=== PATIENT | female | born 1975 | race Caucasian/White ===

== ENCOUNTER → 2017-12-30 11:18 | Outpatient (CLI) | payer OTHER, SELFPAY ==
--- NOTE | 2017-12-30 11:21 | NM_ITS ---
CLINICAL: 42-year-old female with reported history of left kidney hydronephrosis. 99m Tc MAG3 DIURETIC RENAL SCINTIGRAPHY COMPARISON: None available FINDINGS: Following the intravenous administration of 10.8 mCi of 99m Tc MAG3, renal images reveal: 1. The flow study demonstrates normal, symmetric arterial phase distribution of the radiopharmaceutical to the bilateral kidneys. 2. Immediate static delayed nephrogram images depict prompt, homogeneous tracer concentration by the renal parenchyma of the left and right renal units. Collecting structure visualization is identified in the bilateral kidneys approximately 4 minutes following tracer injection. Washout of the radiopharmaceutical by the renal parenchyma appears qualitatively normal in both kidneys. Persistent collecting system activity is demonstrated in the bilateral renal units during 20 minutes of pre-Lasix sequential image acquisition. 3. The rcfjl-fm-[id number] ratio of total renal parenchymal function was calculated to be 52/48. Furosemide 10 mg was administered intravenously. The post Lasix T 1/2 washout of the bilateral kidney collecting system activity was calculated to be < 10 minutes, (normal < 10 minutes). NM/Renal Scan w/o Pharm Interven IMPRESSION: 1. There is preservation of bilateral renal parenchymal, cortical function. 2. The persistently defined prominent pre-Lasix left and right kidney collecting systems demonstrating normal physiologic response to induced diuresis negating the presence of significant mechanical and/or functional obstruction. Electronically Signed: Juan Sheppard DO at 13:20 EDT Tel , Service support ,
== END ==
PROVIDERS: Family Provider Family Medicine; PCP Family Medicine; Visit Provider Nurse Practitioner Adult Health
DX: N13.30 Unspecified hydronephrosis (principal)
CPT/HCPCS: 78707; A9562; J1940

== ENCOUNTER 2018-05-12 14:54 | Day surgery (SDC) | payer OTHER, SELFPAY ==
[2018-05-12 15:12] VITALS: BP 133/80; PULSE 73; RESP 18; TEMP 36.6; O2SAT 99; BMI 24.9
[2018-05-12] MEDS: Cefazolin 2 GM in 0.9% Normal Saline 100 ML IV (15:32)
--- NOTE | 2018-05-12 16:03 | PCM.DC.URO ---
Discharge Diet: Light diet - advance as tolerated Discharge Activity: Return to Normal Activity Call your doctor if your incision/area has: Continuous Slow Oozing, Sudden Increased Bleeding, Increased Pain/ Swelling, Increased Redness Call your doctor if you observe: Fever of 101 or Higher Allergies/Adverse Reactions: Allergies levofloxacin [From Levaquin] Allergy (Verified 05/05/18 08:19) Rash Penicillins [PCN] Allergy (Verified 05/05/18 08:19) SWOLLEN LEGS tetracycline Allergy (Verified 05/05/18 08:19) Rash Medications to take at Discharge Levothyroxine [Synthroid] 88 mcg PO DAILY 11/06/15 Vitamin B Complex Vit C No.3 [B Complex with Vitamin C] 1 each PO DAILY 08/31/16 Linacolotide [Linzess] 290 mcg PO DAILY 05/05/18 Primary Care Physician: Claudette Barahona PA-C [Primary Care Provider] - Test Results: Test results from this visit will be discussed in further detail at your follow-up appointment, if applicable. Please Follow Up With: Jarocho Doty MD When: please call to make an appointment.
--- NOTE | 2018-05-12 16:04 | PCM.OPRPT ---
Report of Operation Date of Procedure: 05/12/18 Pre-Operative Diagnosis: Left renal colic history of left UPJ repair Post-Operative Diagnosis: Same Surgery/Procedure Performed:: Cystoscopy and left retrograde pyelogram Description of Surgical Findings:: 42-year-old female with a history of a prior repair in the left kidney with an open pyeloplasty this was done many years ago she also had prior laser laser procedure on this kidney. She has been having off-and-on pain in the left side and she thinks that the kidney is causing her pain and discomfort CAT scan question of hydronephrosis renogram was nondiagnostic today were to do a retrograde pyelogram to get a further look at this if an area of stricture or narrowing is identified we plan to do balloon dilation of stricture dilation and placement of stent. 42-year-old female taken back to the operating room after smooth induction of anesthesia she was placed in dorsal lithotomy position the urethra and vaginal area were prepped and draped in usual sterile fashion went into the bladder with a 21 Sudanese rigid cystourethroscope urethra is normal the bladder trigone is normal the left and right ureteral orifice was normal no tumors or stones seen within the bladder nice smooth mucosa within the bladder, and cannulated the left ureteral orifice with a Pollack catheter performed a retrograde pyelogram he can see contrast going up the ureter fairly easily with no area of stricture contrast go all the way up to the kidney past the UPJ area. We then pulled out the catheter and observe the kidney and we can see good drainage and normal bolus drainage of the left kidney his images were saved on loop cine. And still images were also captured. Because a retrograde is normal no strictures were found good drainage of the kidney and the left side we did not do anything else at this point since she did not have any structures or blockage of the left kidney bladder was drained patient has anesthetic was reversed and I will demonstrate the images to her family unfortunately this may not explain her source of her left flank pain but her anatomy in the left kidney appears normal and does have normal drainage on today's retrograde pyelogram. Type of Anesthesia:: General Drains: none - Admit VTE Documentation VTE Present on Admission: No VTE Mechan Device Prophylaxis: SCD's
[2018-05-12 16:14] VITALS: BP 133/80; BP 140/114; PULSE 94; RESP 18; TEMP 36.3; O2SAT 99
[2018-05-12 16:23] VITALS: BP 123/77; BP 133/80; PULSE 74; RESP 18; O2SAT 100
[2018-05-12 16:30] VITALS: BP 123/78; BP 133/80; PULSE 76; RESP 18; O2SAT 98
[2018-05-12 16:33] VITALS: BP 124/109; BP 133/80; PULSE 72; RESP 18; TEMP 36.6; O2SAT 99
[2018-05-12 17:00] VITALS: BP 133/80
== END 2018-05-12 17:00 | disposition home or self-care (01) ==
LOC: SDC 14:54 → AC 14:57
PROVIDERS: Family Provider Family Medicine; PCP Family Medicine; Visit Provider Urology
PROC: (CPT 52332; principal; 2018-05-12 17:05)
DX: N23 Unspecified renal colic (principal); N13.4 Hydroureter; K58.1 Irritable bowel syndrome with constipation; F41.9 Anxiety disorder, unspecified; E03.9 Hypothyroidism, unspecified; Z87.442 Personal history of urinary calculi; Z98.890 Other specified postprocedural states
CPT/HCPCS: 00910; 52005; 76000; J7120; C1769; J2405

== ENCOUNTER → 2018-10-19 12:39 | Outpatient (CLI) | payer OTHER, SELFPAY ==
--- NOTE | 2018-10-19 13:00 | MRI_ITS ---
STUDY: BILATERAL BREAST MR WITHOUT AND WITH CONTRAST REASON FOR EXAM: Female, 43 years old. Dense breast tissue. TECHNIQUE: Multi-sequence multi-echo imaging of both breasts was performed with a dedicated breast coil. T1-weighted and T2-weighted images were performed before the administration of contrast. T1-weighted images were also performed after the administration of 6ml mL of Gadavist contrast intravenously without complications. COMPARISON: Screening mammograms dated April 05, 2006 and October 04, 2018 FINDINGS: RIGHT BREAST: The breast tissue is heterogeneously dense with minimal background enhancement. There are no abnormal enhancing masses or areas of non-mass enhancement in the right breast. LEFT BREAST: The breast tissue is heterogeneously dense with minimal background enhancement. There are no abnormal enhancing masses or areas of non-mass enhancement in the left breast. There are no enlarged or abnormal lymph nodes. There is no abnormality in the visualized regions of the chest or liver. MRI/Breast Bilateral W/O and W IMPRESSION: No abnormality identified on the bilateral breast MR examination with contrast. CATEGORY: BIRADS Category 1: Negative. A letter regarding these results will be sent to the patient by the facility within 30 days. Electronically Signed: Chapito Fernandez MD at 17:45 EST , Service support ,
== END ==
PROVIDERS: Family Provider Family Medicine; PCP Family Medicine; Referring Provider Obstetrics & Gynecology; Visit Provider Obstetrics & Gynecology
DX: R92.2 Inconclusive mammogram (principal)
CPT/HCPCS: 77049; A9585; C8908

== ENCOUNTER → 2020-10-13 10:09 | Outpatient (CLI) | payer SELFPAY ==
--- NOTE | 2020-10-13 10:15 | MRI_ITS ---
STUDY: BILATERAL BREAST MR WITHOUT AND WITH CONTRAST REASON FOR EXAM: Female, 45 years old. MASTODYNIA -- dense breasts, f/u mamm, area 12 o''clock left breast TECHNIQUE: Multi-sequence multi-echo imaging of both breasts was performed with a dedicated breast coil. T1-weighted and T2-weighted images were performed before the administration of contrast. T1-weighted images were also performed after the administration of IV doratem 13ml without complications. COMPARISON: US 10.02.20 FINDINGS: RIGHT BREAST: The breast tissue is scattered fibroglandular densities with minimal background enhancement. There are no abnormal enhancing masses or areas of non-mass enhancement in the right breast. LEFT BREAST: The breast tissue is scattered fibroglandular densities with minimal background enhancement. There are no abnormal enhancing masses or areas of non-mass enhancement in the left breast. There are no enlarged or abnormal lymph nodes. There is no abnormality in the visualized regions of the chest or liver. MRI/Breast Bilateral W/O and W IMPRESSION: Unremarkable breast MR examination with contrast. CATEGORY: BIRADS Category 2: Benign. A letter regarding these results will be sent to the patient by the facility within 30 days. Electronically Signed: Mil Rogers MD at 16:20 EST , Service support ,
== END ==
PROVIDERS: PCP Family Medicine; Referring Provider Obstetrics & Gynecology; Visit Provider Obstetrics & Gynecology
DX: N64.4 Mastodynia (principal)
CPT/HCPCS: 77049; A9575; A4216; C8908

== ENCOUNTER → 2020-10-24 08:49 | Outpatient (CLI) | payer OTHER, SELFPAY ==
[2020-10-16 09:48] VITALS: BMI 25.3
--- NOTE | 2020-10-24 08:51 | BI_ITS ---
MAMMOGRAPHY - UNILATERAL DIAGNOSTIC: LEFT BREAST REASON FOR EXAM: Female, 45 years old. Abnormal mammogram. PERTINENT HISTORY: Grandmother with breast cancer. TECHNIQUE: Digital unilateral breast joseph (3D mammographic acquisition) in the CC and MLO projections. 2-D mediolateral oblique (MLO) and craniocaudad (CC) views of both breasts were obtained. CAD: Full Field Digital Mammography with Computer Added Detection was performed. COMPARISON: Comparison is made with prior examination 10/04/2019. FINDINGS: Breast Composition: The breasts are heterogeneously dense, which may obscure small masses. There is a focal 9 mm x 5.4 mm nodule in the upper central portion of the left breast. Correlation with ultrasound is recommended. Tissue marker is seen in the upper lateral aspect of the left breast. No other significant abnormalities are identified. BI/DIAG MAMM W/CAD, UNILAT IMPRESSION: 9 mm x 5.4 mm nodule in the upper central portion of the left breast. Correlation with ultrasound is recommended. ASSESSMENT CATEGORY: BIRADS Category 0: Incomplete. Need additional imaging evaluation. A letter regarding these results will be sent to the patient by the facility within 30 days. Approximately 10% of breast cancers are not detected by mammography. A normal mammogram should not delay biopsy of a clinically suspicious abnormality. Electronically Signed: Elan Collins MD at 12:09 EST , Service support ,
--- NOTE | 2020-10-24 10:20 | US_ITS ---
STUDY: ULTRASOUND BREAST - LEFT REASON FOR EXAM: Female, 45 years old. Abnormal screening mammogram. TECHNIQUE: Axial and longitudinal images of the LEFT breast were performed with a high resolution ultrasound transducer. # OF IMAGES: 40 COMPARISON: Comparison is made with prior mammogram done earlier today. FINDINGS: LEFT Breast: There is a 5 mm x 4 mm x 2 mm well-defined hypoechoic nodule at the 11 o''clock position of the breast at 4 cm from the nipple. There appears to be a central echogenic density suggestive of possible lymph node. Biopsy recommended. US/Breast Limited Unilateral IMPRESSION: 5 mm x 4 mm x 2 mm ill-defined hypoechoic nodule at 11 o''clock position of the breast 4 cm nipple. Biopsy recommended. ASSESSMENT CATEGORY: BIRADS Category 4: Suspicious - Biopsy Should Be Considered. A letter regarding these results will be sent to the patient by the facility within 30 days. Electronically Signed: Elan Collins MD at 12:30 EST , Service support ,
== END ==
PROVIDERS: PCP Family Medicine; Referring Provider Surgery; Visit Provider Surgery
DX: R92.8 Other abnormal and inconclusive findings on diagnostic imaging of breast (principal)
CPT/HCPCS: 76642; 77061; 77065; G0279

== ENCOUNTER → 2020-10-30 10:47 | Outpatient (CLI) | payer OTHER, SELFPAY ==
[2020-10-16 09:48] VITALS: BMI 25.3
--- NOTE | 2020-10-30 | BRBX_PTH ---
PATIENT: ELENO GILL LOC: PIA U#:[id number] AGE/SX: 50/F ROOM: RE10/30/[address]: Dr. Hernesto Griffith MD : 1975 BED: DIS: SPEC #: [id number] RECD: 10/30/20 12:26 STATUS: GILLES ARYA #: [id number] NELSON: 10/30/20 00:[address]: Hernesto Griffith DEPT: SURGICAL PATHOLOGY RECD BY: Dave Coleman ENTERED: 10/30/20 12:26 SP TYPE: BREAST BX OTHR DR: Claudette Barahona PA-C Tissues: Left breast, NOS Procedures: Surgery Specimen Level IV HEADER OPERATION: Left stereotactic breast biopsy PRE-OP DIAGNOSIS: Focal nodule in upper central portion left breast TISSUE SUBMITTED: Left breast core biopsy ISCHEMIC TIME: 1 minute FIXATION TIME: 8.5 hours MICROSCOPIC DIAGNOSIS Left breast, stereotactic core biopsy: Fibrocystic changes and intraductal hyperplasia without atypia. Negative for malignancy. See comment. [place]:claire 10/31/2020 COMMENT Correlation with clinical, radiologic findings and appropriate follow up are necessary. MICROSCOPIC DESCRIPTION Slides are reviewed. GROSS DESCRIPTION Received in fixative is one container labeled with the patient name and designated left breast. The specimen consists of multiple elongated fragments of yee-yellow fibroadipose tissue that in aggregate measure 7.5 x 2.5 x 0.3 cm. The entire specimen is submitted in three cassettes. / [place]:claire 10/30/20 TC:5 CPT: 97274
--- NOTE | 2020-10-30 10:33 | HP.PCM_ITS ---
Problem List (1) Abnormal mammogram of left breast Status: Acute History and Physical Date of Admission: 10/30/[address] Hernesto Griffith MD on 10/27/20 at 0855 Addendum entered and electronically signed by Hernesto Griffith MD 10/27/20 08:55: October 27, 2020 At the [facility] the patient had diagnostic left mammogram with CAD. This was compared to October 04, 2019. There is felt to be a focal 9 x 5.4 mm nodule in the upper central portion of the left breast. Now the interpretation was suggested ultrasound was recommended. Despite our request it seems apparent that they did not refer her back to the very recent mammogram and ultrasound that it performed from [facility]. We did provide them with this information prior. It is of note that when I personally look at her films I see a vague area 1 year ago on mammogram similar to the area now although the area now is much more specific. The area currently has only seen on the MLO view. I cannot find it on the cc view and CAD does not find it on the cc view. I personally phoned called the patient today. I am aware that her MRI is negative. I have offered her an attempt at a stereotactic needle core upper mid left breast biopsy using the MLO view. She is aware of the technique, benefit, risk, alternatives. If we are able to sample the area then will have a definitive diagnosis. If we are not able to sample the area then would need to consider the possibility of a repeat local ultrasound or an attempt at an ultrasound-guided biopsy or full back to routine follow-up. Hernesto Griffith M.D., F.A.C.S. Intake Chief Complaint: BIRADS 3 Allergies levofloxacin [From Levaquin] Allergy (Verified 10/16/20 09:49) Rash Penicillins [PCN] Allergy (Verified 10/16/20 09:49) SWOLLEN LEGS tetracycline Allergy (Verified 10/16/20 09:49) Rash Medications Vitamin B Complex Vit C No.3 [B Complex with Vitamin C] 1 ea PO DAILY 08/31/16 [History Confirmed 10/16/20] ascorbic acid (vitamin C) 500 mg capsule 500 mg PO QDAY cap 10/16/20 [History Confirmed 10/16/20] cholecalciferol (vitamin D3) 125 mcg (5,000 unit) capsule 125 mcg PO DAILY 10/16/20 [History Confirmed 10/16/20] fluoxetine 10 mg capsule 10 mg PO DAILY cap 10/16/20 [History Confirmed 10/16/20] lansoprazole 30 mg capsule,delayed release 30 mg PO DAILY cap 10/16/20 [History Confirmed 10/16/20] levothyroxine 112 mcg tablet 112 mcg PO DAILY tab 10/16/20 [History Confirmed 10/16/20] linaclotide 290 mcg capsule 290 mcg PO DAILY cap 10/16/20 [History Confirmed 10/16/20] Assessment & Plan Problems 1. Abnormal mammogram of left breast R92.8 Plan - Dr. Hernesto Griffith MD Abnormal mammogram left breast. On the images provided it is not clear to me that the area to which they speak left breast 12 o'clock position was not seen previously in 2019. It is not clear to me that the vague item seen on ultrasound correlates with the mammogram. It is certainly reassuring that the MRI is normal. I think possibly the best thing to do would be to get a 3D left mammogram with CAD. Hopefully comparisons can be made. She concurs and we will schedule as noted. I appreciate the opportunity of assisting with surgical care Copy: Dr. Beck Finley and CARLOS Menchaca M.D., F.A.C.S. Orders Orders: DIAG MAMM W/CAD, UNILAT 10/24/20 R92.8 10/27/20 0855 <Electronically signed by Hernesto arias MD> Date _ Hernesto Griffith MD cc: CARLOS Barahona; Dr. Beck Finley MD ~* Signed Intake Vital Signs 10/16/20 Height 5 ft 3 in 10/16/20 Weight: 143 lb 10/16/20 BMI 25.3 10/16/20 BP 121/85 H 10/16/20 Blood Pressure Location Rt brachial 10/16/20 Position Sitting 10/16/20 Respiration 16 10/16/20 Pulse 74 10/16/20 Pulse Source Monitor 10/16/20 Temp 98.0 F 10/16/20 Temp Source Temporal 10/16/20 Pulse Oximetry (%) 97 10/16/20 Oxygen Delivery Method room air Intake Visit Reasons: birads 3 Chief Complaint: BIRADS 3 Potato Loader Required: No Is patient in pain?: No Allergies levofloxacin [From Levaquin] Allergy (Verified 10/16/20 09:49) Rash Penicillins [PCN] Allergy (Verified 10/16/20 09:49) SWOLLEN LEGS tetracycline Allergy (Verified 10/16/20 09:49) Rash Medications Vitamin B Complex Vit C No.3 [B Complex with Vitamin C] 1 ea PO DAILY 08/31/16 [History Confirmed 10/16/20] ascorbic acid (vitamin C) 500 mg capsule 500 mg PO QDAY cap 10/16/20 [History Confirmed 10/16/20] cholecalciferol (vitamin D3) 125 mcg (5,000 unit) capsule 125 mcg PO DAILY 10/16/20 [History Confirmed 10/16/20] fluoxetine 10 mg capsule 10 mg PO DAILY cap 10/16/20 [History Confirmed 10/16/20] lansoprazole 30 mg capsule,delayed release 30 mg PO DAILY cap 10/16/20 [History Confirmed 10/16/20] levothyroxine 112 mcg tablet 112 mcg PO DAILY tab 10/16/20 [History Confirmed 10/16/20] linaclotide 290 mcg capsule 290 mcg PO DAILY cap 10/16/20 [History Confirmed 10/16/20] PFS Medical History Hemorrhoids (Acute) Acid reflux (Acute) Constipation (Acute) Anxiety (Acute) Thyroid disease (Acute) Fatigue (Acute) Surgical History History of bunionectomy of left great toe (Acute) Hx of cholecystectomy (Acute) Hx of appendectomy (Acute) Hx of total thyroidectomy (Acute) Hx of tubal ligation (Acute) History of (Acute) History of arthroplasty of left shoulder (Acute) Hx of hysterectomy (Acute) Family History Mother Malignant hyperthermia due to anesthesia Hypertension Father Hypertension Sister Autoimmune disease Thyroid disorder Son Asthma Daughter Asthma Social History (Updated 10/16/20 @ 14:[address] Hernesto Griffith MD) Smoking Status: Never smoker second hand exposure: No alcohol intake: current alcohol intake frequency: a few times a month substance use type: does not use caffeine: Yes (1 cup daily) Type: coffee what type of physical activity do you participate in: walking frequency: daily HPI HPI HPI: ELENO GILL, is a 45 F who presents to the office today for surgical consultation regarding an abnormal left mammogram and ultrasound. The patient is referred by Dr. Beck Finley and a written copy my surgical consult and recommendations will be returned to him. 45-year-old female. G5, . Menarche was at age 14. First I was born when she was 26. She had minimal breast-feeding. No previous breast biopsies. She is not any estrogen medication. She did for her second child required fertility meds hCG and Clomid. She has no direct family members with breast cancer. Up a terminal grandmother had breast cancer. She presented for her routine screening mammograms. That was performed at [facility] with 2D imaging. There is a misprint on the interpretation and the actual finding is in the upper mid left breast a partial density seen on the mammogram. Ultrasound suggests a 5 x 4 x 5 mm item. Suggested solid but appears benign. As noted below the patient had breast MRI performed at [facility] that was unremarkable. She is referred for definitive evaluation Screening mammograms performed October 02, 2020 in [facility] suggested a possible density on the left. A breast ultrasound was done suggesting a possible 5 x 4 x 5 mm solid benign-appearing nodule 12 o'clock position poste rior depth. Dr. Beck Finley then obtained breast MRI as noted below which was felt to be normal. [facility] Imaging Services [address] [place] [address] Breast Bilateral W/O and W MR#: [id number] Name: ELENO GILL [facility] #:[id number] : [id number] From: Mil Rogers MD PCP:Claudette Barahona PA-C Status:REG CLI Study:Breast Bilateral W/O and W Date of Exam:10/13/20 Exam#[id number] Ordering Dr: Beck Finley MD STUDY: BILATERAL BREAST MR WITHOUT AND WITH CONTRAST REASON FOR EXAM: Female, 45 years old. MASTODYNIA -- dense breasts, f/u mamm, area 12 o''clock left breast TECHNIQUE: Multi-sequence multi-echo imaging of both breasts was performed with a dedicated breast coil. T1-weighted and T2-weighted images were performed before the administration of contrast. T1-weighted images were also performed after the administration of IV doratem 13ml without complications. COMPARISON: US 10.02.20 FINDINGS: RIGHT BREAST: The breast tissue is scattered fibroglandular densities with minimal background enhancement. There are no abnormal enhancing masses or areas of non-mass enhancement in the right breast. LEFT BREAST: The breast tissue is scattered fibroglandular densities with minimal background enhancement. There are no abnormal enhancing masses or areas of non-mass enhancement in the left breast. There are no enlarged or abnormal lymph nodes. There is no abnormality in the visualized regions of the chest or liver. MRI/Breast Bilateral W/O and W IMPRESSION: Unremarkable breast MR examination with contrast. CATEGORY: BIRADS Category 2: Benign. A letter regarding these results will be sent to the patient by the facility within 30 days. Electronically Signed: Mil Rogers MD at 16:20 EST , Service support , HPI HPI HPI: ELENO GILL, is a 45 F who presents to the office today for ROS General General: Yes fatigue; no weight change, appetite, colon cancer, breast cancer or weakness HEENT HEENT: No difficulty swallowing, eye injury, eye surgery, swollen glands or hoarseness Endo Endocrine: Yes thyroid disease; no diabetes mellitus, thyroid cancer, Hair loss, heat intolerance or cold intolerance Skin Skin: No rash or changing moles Breast Breast: Yes abnormal mammogram, abnormal US and breast enlargement; no left breast lump, right breast lump, nipple discharge or breast pain Musc Musculoskeletal: No back problems, arthritis, rheumatoid arthritis, gout or joint pain Cardio Cardiovascular: No murmur, pacemaker, heart disease, atrial fibrillation, high blood pressure, heart attack, heart stent, palpitations, shortness of breat with exertion or chest pain Psych Psychiatric: Yes anxiety; no depression or hearing voices Resp Respiratory: No shortness of breath, No sleep apnea, No cough, No COPD, No asthma, No emphysema, No wheezing Gastro Gastrointestinal: No abdominal pain, No nausea or vomiting, No diarrhea, Yes constipation, No blood in stool, Yes acid reflux, Yes hemorrhoids, No ulcers, No gallbladder problem, No black,tarry stools [place] Hematologic: No blood thinners, No blood disorders, No bleeding, No anemia, No blood clots Neuro Neurologic: No system reviewed and no additional complaints, except as docu, No as per HPI, No abnormal walking, No abnormal hearing, No abnormal movements, No abnormal speech, No behavioral changes, No burning sensations, No confusion, No seizure-like activity, No unsteadiness, No dizziness, No localized weakness, No frequent falls, No headache(s), No lack of coordination, No loss of vision, No memory loss, No numbness, No other visual disturbances, No radiating pain, No restless legs, No sensory deficit, No fainting, No tingling, No tremor(s), No weakness, No other Exam Chest Breast Palpation: No nipple discharge Other: With nursing present I performed ultrasound inspection of her upper mid left breast. I could see an area 12 o'clock position but it looks like it could be a conglomerate of ducts. I could not find something that absolutely metered what was seen on the [place] ultrasound. Cardio Heart Sounds: no murmurs Assessment & Plan Problems 1. Abnormal mammogram of left breast R92.8 Plan Abnormal mammogram left breast. On the images provided it is not clear to me that the area to which they speak left breast 12 o'clock position was not seen previously in 2020. It is not clear to me that the vague item seen on ultrasound correlates with the mammogram. It is certainly reassuring that the MRI is normal. I think possibly the best thing to do would be to get a 3D left mammogram with CAD. Hopefully comparisons can be made. She concurs and we will schedule as noted. I appreciate the opportunity of assisting with surgical care Copy: Dr. Beck Finley and CARLOS Menchaca M.D., F.A.C.S. Orders Orders: DIAG MAMM W/CAD, UNILAT Today R92.8 Coding Level of Care Code 79728 Diagnoses Abnormal mammogram of left breast R92.8 I have re-examined the patient. There are no clinical changes since date of exam. Procedure Criteria Procedure Type: Elective COVID Risk Discussion: The surgeon/proceduralist and patient have discussed in detail the risk of exposure to and/or potential harm posed by the COVID-19 virus with having a surgery/procedure at this time versus the risk of delaying the surgery/procedure. It is not possible to know either the risk of delaying the surgery or procedure or chance of getting an infection with perfect accuracy, but a joint decision was made between the patient and the surgeon/proceduralist to proceed at this time with the scheduled surgery/procedure as indicated on the consent form.
--- NOTE | 2020-10-30 11:40 | OP.PCM_ITS ---
Problem List (1) Abnormal mammogram of left breast Status: Acute Report of Operation Date of Procedure: 10/30/20 Pre-Operative Diagnosis: Density upper mid left breast Post-Operative Diagnosis: Same Surgery/Procedure Performed:: Stereotactic needle core biopsy upper mid left breast Description of Surgical Findings:: Timeout and informed consent was obtained. 45-year-old female was taken to the mammography suite. She was placed prone on the table. The left breast was placed in a cc view. The density in question was identified. Stereotactic images were obtained. Target on welding machine operator ultrasonic was selected replacing image 2. A single target site was selected. The breast was prepped with Betadine. 1% lidocaine was used as a local anesthetic. A total of 10 cc was used. Small stab incision was created. A 10-gauge mammotome device was advanced to prefire depth. Prefire films were obtained. Subsequently 12 cores were obtained. A dog long marking clip was left at 12:00. On fast view was obtained. This suggested that a portion of this item had been sampled but not completely. We repeated Ceretec images. Repeated targeting. The 10-gauge needles were inserted. 6 more cores were obtained. Repeat on fast film obtained demonstrating the marking clip to be in good position. The area in question now was felt to been adequately sampled. The specimens had immediately been placed in formalin. She was released from the rise. Pressure was held for hemostasis. Steri-Strips Telfa OpSite dressings applied. She was given activity wound care instructions. Specimens core biopsies. Blood loss minimal. Drains none. She will be provided with pathology results as soon as available. Hernesto Griffith M.D., F.A.C.S. Type of Anesthesia:: Local
== END ==
PROVIDERS: PCP Family Medicine; Referring Provider Surgery; Visit Provider Surgery
DX: N63.20 Unspecified lump in the left breast, unspecified quadrant (principal)
CPT/HCPCS: 19081; 88305; J7050

== ENCOUNTER → 2021-05-04 08:45 | Outpatient (CLI) | payer OTHER, SELFPAY ==
[2020-10-16 09:48] VITALS: BMI 25.3
[2020-12-01 10:31] VITALS: BMI 25.3
--- NOTE | 2021-05-04 08:46 | BI_ITS ---
MAMMOGRAPHY - UNILATERAL DIAGNOSTIC: LEFT BREAST REASON FOR EXAM: Female, 45 years old. Six-month follow-up examination following left breast biopsy. PERTINENT HISTORY: Grandmother with breast cancer. TECHNIQUE: Digital unilateral breast joseph (3D mammographic acquisition) in the CC and MLO projections. 2-D mediolateral oblique (MLO) and craniocaudad (CC) views of both breasts were obtained. CAD: Full Field Digital Mammography with Computer Added Detection was performed. COMPARISON: Comparison is made with prior abdomen examination dated 10/02/2020 and 10/24/2020. FINDINGS: Breast Composition: The breasts are heterogeneously dense, which may obscure small masses. A new tissue clip marker is seen in the deep upper central portion of the left breast. A tissue clip marker is also seen in the central upper lateral portion of the left breast. There are no dominant masses or suspicious calcifications. No other significant abnormalities are identified. There has been no significant change since the prior study. BI/DIAG MAMM W/CAD, UNILAT IMPRESSION: Stable unilateral diagnostic mammogram. One year follow-up mammogram recommended. (A) ASSESSMENT CATEGORY: BIRADS Category 2: Benign. A letter regarding these results will be sent to the patient by the facility within 30 days. Approximately 10% of breast cancers are not detected by mammography. A normal mammogram should not delay biopsy of a clinically suspicious abnormality. Electronically Signed: Elan Collins MD at 10:25 EDT , Service support ,
--- NOTE | 2021-05-04 08:56 | US_ITS ---
STUDY: ULTRASOUND BREAST - LEFT REASON FOR EXAM: Female, 45 years old. Six-month follow-up for prior left breast biopsy. TECHNIQUE: Axial and longitudinal images of the LEFT breast were performed with a high resolution ultrasound transducer. # OF IMAGES: 36 COMPARISON: Comparison is made with prior mammogram done earlier in the day as well as prior ultrasound of the left breast dated 10/24/2020. FINDINGS: LEFT Breast: There is a 6 mm x 5 mm x 3 mm hypoechoic stable solid nodule at the 11 o''clock position of the breast at 4 cm. Unable to identify the biopsy clip. US/Breast Limited Unilateral IMPRESSION: Stable examination. ASSESSMENT CATEGORY: BIRADS Category 2: Benign. A letter regarding these results will be sent to the patient by the facility within 30 days. Electronically Signed: Elan Collins MD at 10:33 EDT , Service support ,
== END ==
PROVIDERS: PCP Family Medicine; Referring Provider Surgery; Visit Provider Surgery
DX: R92.8 Other abnormal and inconclusive findings on diagnostic imaging of breast (principal)
CPT/HCPCS: 76642; 77061; 77065; G0279

== ENCOUNTER 2021-10-16 10:16 | Outpatient (CLI) | payer OTHER, SELFPAY ==
--- NOTE | 2021-10-16 10:19 | BI_ITS ---
MAMMOGRAPHY - BILATERAL SCREENING REASON FOR EXAM: Female, 46 years old. Routine annual screening examination. PERTINENT HISTORY: Grandmother with breast cancer. Prior left stereotactic breast biopsy. TECHNIQUE: Digital bilateral breast uriah (3D mammographic acquisition) in the CC and MLO projections. 2-D mediolateral oblique (MLO) and craniocaudad (CC) views of both breasts were obtained. CAD: Full Field Digital Mammography with Computer Added Detection was performed. COMPARISON: Comparison is made with prior outside examination dated 04/01/2021 and 05/04/2021. FINDINGS: Breast Composition: The breasts are heterogeneously dense, which may obscure small masses. There are no dominant masses or suspicious calcifications. A tissue clip marker is seen within the tiny density in the deep upper central portion of the right breast. A tissue clip marker is also seen in the slightly upper lateral aspect of the right breast. No other significant abnormalities are identified. There has been no significant change since the prior study. BI/SCRN MAMM (CAD)W/URIAH BILAT IMPRESSION: Stable bilateral screening mammogram. Yearly follow-up mammogram recommended. (A) ASSESSMENT CATEGORY: BIRADS Category 2: Benign. A letter regarding these results will be sent to the patient by the facility within 30 days. Approximately 10% of breast cancers are not detected by mammography. A normal mammogram should not delay biopsy of a clinically suspicious abnormality. [id number] Electronically Signed: Elan Collins MD at 13:54 EST ,
[2021-10-16 12:10] LABS: T4 Free Direct 1.19 ng/dL (0.76-1.46); Thyroid Stim Hormone (TSH) 0.03 uIU/mL (0.358-3.74)
== END 2021-10-16 23:59 | disposition short-term general hospital (02) ==
PROVIDERS: Internal Medicine Endocrinology, Diabetes & Metabolism; PCP Family Medicine; Referring Provider Obstetrics & Gynecology; Visit Provider Obstetrics & Gynecology
DX: Z12.31 Encounter for screening mammogram for malignant neoplasm of breast (principal); E89.0 Postprocedural hypothyroidism
CPT/HCPCS: 36415; 77063; 77067; 84439; 84443

== ENCOUNTER 2021-12-14 17:28 | Outpatient (CLI) | payer OTHER, SELFPAY ==
[2021-12-14 18:35] LABS: Follicle Stimulating Hormone 5.3 mIU/mL; Luteinizing Hormone 3.5 mIU/mL; T4 Free Direct 1.48 ng/dL (0.76-1.46); Thyroid Stim Hormone (TSH) 0.03 uIU/mL (0.358-3.74)
== END 2021-12-14 23:59 | disposition home or self-care (01) ==
LOC: LAB 17:29
PROVIDERS: PCP Family Medicine; Referring Provider Internal Medicine Endocrinology, Diabetes & Metabolism; Visit Provider Internal Medicine Endocrinology, Diabetes & Metabolism
DX: E89.0 Postprocedural hypothyroidism (principal); R63.5 Abnormal weight gain
CPT/HCPCS: 36415; 82530; 82627; 83001; 83002; 84439; 84443; 82626

== ENCOUNTER 2021-12-17 10:00 | Outpatient (CLI) | payer OTHER, SELFPAY | END 2021-12-17 23:59 | disposition home or self-care (01) | LOC: LABSPEC 10:01 | PROVIDERS: PCP Family Medicine; Visit Provider Internal Medicine Endocrinology, Diabetes & Metabolism | DX: Z00.00 Encounter for general adult medical examination without abnormal findings (principal) ==

== ENCOUNTER → 2022-01-08 | Outpatient (CLI) | payer OTHER, SELFPAY ==
--- NOTE | 2022-01-08 06:41 | CT_ITS ---
EXAM: CT ABDOMEN WITHOUT INTRAVENOUS CONTRAST CLINICAL INDICATION: High DHEA-S rule out adrenal carcinoma -- ATTN: adrenal glands TECHNIQUE: Helically acquired images were obtained of the abdomen without intravenous contrast. This CT exam was performed using one or more of the following dose reduction techniques: automated exposure control, adjustment of the mA and/or kV according to patient size, and/or use of iterative reconstruction technique. This report was created using Elevate HR report generation technology. RADIATION DOSE: CTDIvol = 21.56 mGy, DLP = 669.06 mGy-cm. COMPARISON: None. FINDINGS: LOWER THORAX: Unremarkable. Lung bases are clear. No cardiomegaly. No significant pericardial effusion. LIVER: Unremarkable. Homogeneous. GALLBLADDER AND BILE DUCTS: Gallbladder not visualized. No intra- or extrahepatic biliary ductal dilation. PANCREAS: Unremarkable. No focal cystic mass. SPLEEN: Unremarkable. Normal size without focal cystic or solid mass. ADRENALS: Unremarkable. No nodules. KIDNEYS AND URETERS: Unremarkable. Normal renal size and position. No hydronephrosis. STOMACH AND BOWEL: Unremarkable. No stomach or bowel distention. No focal inflammatory change. INTRAPERITONEAL SPACE: Unremarkable. No ascites or other fluid collection. No free air. BONES/JOINTS: Unremarkable. No suspicious lytic or blastic abnormality. SOFT TISSUES: Unremarkable. No discrete abdominal wall hernia. VASCULATURE: Unremarkable. Abdominal aorta is non-dilated. LYMPH NODES: No enlarged lymph nodes. CT/Abdomen without IV Contrast IMPRESSION: 1. Normal adrenal glands. 2. No retroperitoneal masses. Electronically Signed: Timur Preston MD at 7:26 EDT ,
== END | disposition home or self-care (01) ==
PROVIDERS: PCP Family Medicine; Visit Provider Internal Medicine Endocrinology, Diabetes & Metabolism
DX: E28.8 Other ovarian dysfunction (principal)
CPT/HCPCS: 74150

== ENCOUNTER → 2022-01-19 | Outpatient (CLI) | payer OTHER, SELFPAY ==
[2022-01-19 08:32] VITALS: BP 129/81; PULSE 62; RESP 12; TEMP 36.1; O2SAT 100; BMI 28.3
[2022-01-19] MEDS: Cosyntropin 0.25 MG Vial IM (08:39)
[2022-01-19 09:37] VITALS: BP 128/80; PULSE 73; RESP 12; TEMP 36.3; O2SAT 100
[2022-01-20 13:08] LABS: DHEA Sulfate 53.9 ug/dL (57.3-279.2)
[2022-01-20 17:11] LABS: Adrenocorticotropic Hormone 9.7 pg/mL (7.2-63.3)
[2022-01-26 15:38] LABS: 17-Hydroxyprogesterone 218 ng/dL (.)
[2022-01-26 15:39] LABS: 17-Hydroxyprogesterone 57 ng/dL (.)
[2022-01-26 16:30] LABS: 17-Hydroxyprogesterone 219 ng/dL (.)
== END | disposition home or self-care (01) ==
LOC: MEDOUTP 08:25
PROVIDERS: PCP Family Medicine; Referring Provider Internal Medicine Endocrinology, Diabetes & Metabolism; Visit Provider Internal Medicine Endocrinology, Diabetes & Metabolism
DX: E28.8 Other ovarian dysfunction (principal)
CPT/HCPCS: 36415; 82024; 82533; 82627; 83498; 96372; 82626; J0834